=== PATIENT | female | born 1980 | race Caucasian/White ===

== ENCOUNTER 2021-09-28 16:20 | Emergency (ER) | payer MEDICAID ==
[~2021-09-28] VITALS: Ht 152.4 cm; Wt 66.0 kg
[~2021-09-28 16:20] MED LIST: DOCU-138 PO; FERR325C PO; IBUP-779 PO
[2021-09-28] MEDS ORDERED: IBUPROFEN 600MG TABLET PO ONE (16:30)
[2021-09-28] MEDS ORDERED: IBUP-2028 MT (20:34)
[2021-09-28] MEDS ORDERED: IBUPROFEN 600MG TABLET PO NR (20:45)
[2021-09-28 20:51] VITALS: BP 135/82
== END 2021-09-28 20:53 | disposition home or self-care (01) ==
LOC: ER 16:20
DX: M79.671 Pain in right foot (principal)
CPT/HCPCS: 73630; 99283